=== PATIENT | male | born 1995 | race African-American/Black ===

== ENCOUNTER 2022-08-28 01:06 | Inpatient (IN) | payer SELFPAY ==
[2022-08-28 01:17] VITALS: BMI 27.8
[2022-08-28] MEDS ORDERED: ACETAMINOPHEN 1000 MG/100 ML BAG IVPB ONE (02:19)
[2022-08-28] MEDS ORDERED: ACETAMINOPHEN INJECTION 100 ML IVPB ONE (02:42)
[2022-08-28 02:56] LABS: BASO % 0.6 % (0-2.0); HEMATOCRIT 46.9 % (35.4-49); HEMOGLOBIN 15.4 GM/dL (11.7-16.9); LYMPH % 23.1 % (8-40); MCH 30.3 pg (25.7-33.7); MCHC 32.9 g/dl (32.0-35.9); MEAN CELL VOLUME 92.1 fl (80-96); MONO % 9.7 % (3.8-10.2); NEUT % 63.6 % (42.8-82.8); PLATELET COUNT 271 10^3/uL (134-434); RDW 13.2 % (11.9-15.9); WHITE BLOOD COUNT 10.9 K/mm3 (4.0-10.0)
[2022-08-28 03:04] LABS: INR 0.92 (0.83-1.09); PROTHROMBIN TIME (PATIENT) 10.6 SEC (9.7-13.0)
[2022-08-28 03:07] LABS: ACTIVATED PTT 56.2 SECONDS (25.2-36.5)
[2022-08-28] MEDS ORDERED: CLINDAMYCIN 600MG PREMIX IVPB 600 MG/50 ML BAG IVPB ONE ×2 (03:17→03:27)
[2022-08-28 03:19] LABS: ALBUMIN 3.8 g/dl (3.4-5.0); BLOOD UREA NITROGEN 9.6 mg/dL (7-18); CALCIUM 9.4 mg/dL (8.5-10.1)
[2022-08-28 03:23] LABS: CREATININE 0.9 mg/dL (0.55-1.3)
[2022-08-28 03:24] LABS: BILIRUBIN,TOTAL 0.2 mg/dL (0.2-1); TOT PROT 6.9 g/dl (6.4-8.2)
[2022-08-28] MEDS ORDERED: morphine CARPU-JECT 4 MG/1 ML DISP.SYRIN IVPUSH ONE (04:05)
[2022-08-28] MEDS ORDERED: ONDANSETRON 4 MG/2 ML VIAL IVPUSH ONE (04:05)
[2022-08-28] MEDS ORDERED: morphine SULFATE 4 MG/ML VIAL ONE (04:05)
[2022-08-28] MEDS ORDERED: ONDANSETRON 4 MG/2 ML VIAL ONE (04:08)
[2022-08-28] MEDS ORDERED: DIPHTH,PERTUSS(ACELL),TET 0.5 ML DISP.SYRIN IM ONE (05:18)
[2022-08-28 09:39] LABS: BASO % 0.5 % (0-2.0); EOS % 2.7 % (0-4.5); HEMATOCRIT 42.7 % (35.4-49); HEMOGLOBIN 14.1 GM/dL (11.7-16.9); LYMPH % 25.5 % (8-40); MCH 30.4 pg (25.7-33.7); MEAN CELL VOLUME 91.9 fl (80-96); MEAN PLT VOLUME 9.5 fl (7.5-11.1); MONO % 9.1 % (3.8-10.2); NEUT % 62.2 % (42.8-82.8); PLATELET COUNT 251 10^3/uL (134-434); RBC 4.64 M/mm3 (4.00-5.60); RDW 13.2 % (11.9-15.9); WHITE BLOOD COUNT 11.2 K/mm3 (4.0-10.0)
[2022-08-28] MEDS ORDERED: DOXYCYCLINE HYCLATE 100 MG CAPSULE PO SCH (10:00)
[2022-08-28] MEDS ORDERED: DOXYCYCLINE INJECTION 100 MG in DEXTROSE 5%-WATER 100 ML IVPB SCH (10:00)
[2022-08-28] MEDS ORDERED: ENOXAPARIN NA (PORCINE) 40 MG/0.4 ML DISP.SYRIN SQ SCH (10:00)
[2022-08-28 10:44] LABS: ALBUMIN 3.6 g/dl (3.4-5.0); BLOOD UREA NITROGEN 8.6 mg/dL (7-18); MAGNESIUM 1.9 mg/dL (1.8-2.4)
[2022-08-28 10:46] VITALS: BP 123/81; PULSE 60; RESP 18; TEMP 98.1
[2022-08-28 10:47] LABS: CREATININE 0.8 mg/dL (0.55-1.3); PHOSPHOROUS 3.8 mg/dL (2.5-4.9)
[2022-08-28 10:48] LABS: BILIRUBIN,TOTAL 0.4 mg/dL (0.2-1); TOT PROT 6.4 g/dl (6.4-8.2)
[2022-08-28] MEDS ORDERED: DOXYCYCLINE HYCLATE 100 MG CAPSULE PO ONE (10:49)
[2022-08-28] MEDS ORDERED: ACETAMINOPHEN 1000 MG/100 ML BAG IVPB PRN (11:07)
== END 2022-08-28 12:30 | disposition left against medical advice (07) | DRG 385 ==
LOC: JER 01:06 → JERBED 02:18
PROVIDERS: ADMIT Internal Medicine
DX: L73.2 Hidradenitis suppurativa (principal); F17.210 Nicotine dependence, cigarettes, uncomplicated; L98.9 Disorder of the skin and subcutaneous tissue, unspecified; F12.90 Cannabis use, unspecified, uncomplicated; J45.909 Unspecified asthma, uncomplicated
CPT/HCPCS: 36415; 71045-TC-FY; 80053; 83735; 84100; 85025; 85610; 85730; 86850; 86900; 86901; 90715; 93005; 93010; 99285-25; C9803-CS; U0003; U0005